=== PATIENT | female | born 1975 | race Caucasian/White ===

== ENCOUNTER 2019-09-26 15:49 | Emergency (ER) | payer MEDICAID, OTHER ==
[~2019-09-26] VITALS: Ht 170.2 cm; Wt 78.7 kg
--- NOTE | 2019-09-26 16:20 | NUR ---
PT CAME IN CO OF BLOOD IN URINE. AND HAS A PAIN ON HER PERIUMBILICAL REGION
[2019-09-26 16:26] LABS: BASOPHILS # (AUTO) 0.08 x10^3/uL (0-0.1); BASOPHILS % (AUTO) 1 % (0-1); EOSINOPHILS # (AUTO) 0.38 x10^3/uL (0-0.4); EOSINOPHILS % (AUTO) 3 % (1-7); LYMPHOCYTES # (AUTO) 1.76 x10^3/uL (1-3.4); LYMPHOCYTES % (AUTO) 13 % (22-44); MD NO; MEAN CORPUSCULAR HEMOGLOBIN 31.7 pg (27.0-34.8); MEAN CORPUSCULAR HGB CONC 33.7 g/dL (32.4-35.8); MEAN CORPUSCULAR VOLUME 93.8 fL (80-100); MEAN PLATELET VOLUME 7.7 fL (7.4-10.4); MONOCYTES # (AUTO) 0.44 x10^3/uL (0.2-0.8); MONOCYTES % (AUTO) 3 % (2-9); NEUTROPHILS # (AUTO) 10.95 x10^3/uL (1.8-6.8); NEUTROPHILS % (AUTO) 80 % (42-75); PLATELET COUNT 419 x10^3/uL (130-400); RED CELL DISTRIBUTION WIDTH 14.1 % (9.6-15.2)
[2019-09-26 16:34] LABS: HCG UR SG 1.028 (1.003-1.030)
[2019-09-26 16:36] LABS: ALANINE AMINOTRANSFERASE 44 U/L (12-78); ALBUMIN 2.8 g/dL (3.4-5.0); ANION GAP 6 mmol/L (5-15); CALCIUM 8.5 mg/dL (8.5-10.1); CHLORIDE 110 mmol/L (98-107); CREATININE 0.83 mg/dL (0.55-1.02)
[2019-09-26 16:36] LABS: MICROSCOPIC INDICATED
[2019-09-26 16:38] LABS: ALKALINE PHOSPHATASE 98 U/L (45-117); BILIRUBIN,TOTAL 0.2 mg/dL (0.2-1.0); TOTAL PROTEIN 6.7 g/dL (6.4-8.2)
[2019-09-26 16:52] LABS: CULTURE INDICATED? NO
[2019-09-26 17:04] VITALS: BP 96/60
--- NOTE | 2019-09-26 17:05 | NUR ---
PT RESTING IN [facility]. CT ORDERED. PT EDUCATED ON WHAT A CT CONSISTS OF. NO OTHER NEEDS AT THIS TIME
--- NOTE | 2019-09-26 17:42 | NUR ---
PT RESTING IN BED, CALL LIGHT IN REACH
--- NOTE | 2019-09-26 17:57 | NUR ---
PT IN CT
== END 2019-09-26 19:08 | disposition home or self-care (01) ==
LOC: ED 16:42
DX: F10.10 Alcohol abuse, uncomplicated (principal); F15.10 Other stimulant abuse, uncomplicated; R31.9 Hematuria, unspecified; N23 Unspecified renal colic; F17.200 Nicotine dependence, unspecified, uncomplicated; Z72.9 Problem related to lifestyle, unspecified; Y90.9 Presence of alcohol in blood, level not specified
CPT/HCPCS: 36415; 74176; 80053; 81001; 81025; 83690; 85025; 99284